=== PATIENT | male | born 1965 | race Caucasian/White ===

== ENCOUNTER 2016-03-24 16:47 | Emergency (ER) | payer SELFPAY ==
--- NOTE | 2016-03-24 17:01 | Emergency Department Record ---
History of Present Illness - General Chief complaint: Extremity Problem Stated complaint: R SHOULDER INJURY Time Seen by Provider: 03/24/16 16:55 Source: Patient Mode of Arrival: Ambulatory Limitations: No limitations - History of Present Illness Initial comments: 50 yo male presents after a fall last night. The fall occurred outside on ice. No head injury. No neck pain. He has pain of the RUE. He landed by breaking his fall with an outstretched arm. No hand oar wrist pain. He has mild elbow pain. The shoulder is painful to move at this point. He was able to move it last night but is uncomfortable today. MD Complaint: Extremity pain, Joint pain Onset/Timin -: Days(s) Location: Right, Shoulder History of Same: No Radiation: Proximal Severity scale (1-10): 2 Quality: Aching Consistency: Constant Improves with: Immobilization Worsens with: Nothing - Related Data Home Medications Medication Instructions Recorded Confirmed Last Taken Aspirin [Adult Low Dose Aspirin EC] 81 mg PO DAILY 03/24/16 03/24/16 Unknown Allergies Allergy/AdvReac Type Severity Reaction Status Date / Time No Known Drug Allergies Allergy Verified 03/24/16 16:53 Travel Screening - Travel/Exposure Within Last 30 Days Have you traveled within the last 30 days?: No Review of Systems Constitutional: Denies: Chills, Fever, Malaise, Night sweats Eyes: Denies: Eye discharge, Eye pain, Photophobia ENT: Denies: Congestion, Throat pain Respiratory: Denies: Cough, Dyspnea Cardiovascular: Denies: Chest pain, Palpitations, Syncope Endocrine: Denies: Fatigue Gastrointestinal: Denies: Abdominal pain, Diarrhea, Nausea, Vomiting Genitourinary: Denies: Hematuria, Urgency Musculoskeletal: Reports: Arthralgia, Myalgia. Denies: Back pain, Joint swelling, Neck pain Skin: Denies: Bruising, Change in color, Rash Neurological: Denies: Confusion, Headache Psychiatric: Denies: Anxiety Hematological/Lymphatic: Denies: Blood Clots, Easy bleeding, Easy bruising, Swollen glands Past Medical History - SOCIAL HISTORY Smoking Status: Never smoker Alcohol Use: None Drug Use: None - RESPIRATORY Hx Respiratory Disorders: No - CARDIOVASCULAR Hx Cardio Disorders: Yes Comment:: hx afib - NEURO Hx Neuro Disorders: No - GI Hx GI Disorders: No - Hx Genitourinary Disorders: No - ENDOCRINE Hx Endocrine Disorders: No - MUSCULOSKELETAL Hx Musculoskeletal Disorders: No - PSYCH Hx Psych Problems: No - HEMATOLOGY/ONCOLOGY Hx Hematology/Oncology Disorders: No Family Medical History Any Significant Family History?: No Physical Exam - General General Appearance: Alert, Oriented x3, Cooperative, No acute distress Limitations: No limitations - Head Head exam: Atraumatic, Normocephalic, Normal inspection - Eye Eye exam: Normal appearance. negative: Conjunctival injection - ENT ENT exam: Normal exam Ear exam: Normal external inspection Nasal Exam: Normal inspection Mouth exam: Normal external inspection Teeth exam: Normal inspection - Neck Neck exam: Normal inspection, Full ROM. negative: Tenderness - Cardiovascular Cardiovascular Exam: Regular rate, Normal rhythm, Normal heart sounds Peripheral Pulses: 2+: Radial (R) - Rectal Rectal exam: Deferred - exam: Deferred - Extremities Extremities exam: Normal inspection, Full ROM, Normal capillary refill, Tenderness. negative: Joint swelling Image of Full Body: 1 - tender anterior lateral shoulder, pain with extension and flexion, mild with internal and external rotation. clavicle non tender. Non tender AC. 2 - mild tenderness lateral epicondyle - Back Back exam: Reports: Full ROM - Neurological Neurological exam: Alert, Normal gait, Oriented X3, Reflexes normal - Psychiatric Psychiatric exam: Normal affect, Normal mood. negative: Agitated, Anxious - Skin Skin exam: Dry, Intact, Normal color, Warm. negative: Abrasion, Erythema Course Vital Signs 03/24/16 16:49 Temperature 98.1 F Pulse Rate 78 Respiratory 16 Rate Blood Pressure 139/93 Pulse Ox 98 - Reevaluation(s) Reevaluation #1: The patient was seen and examined XR ordered 03/24/16 17:06 Reevaluation #2: XR's of the shoulder and elbow are negative 03/24/16 17:53 Disposition Disposition: Discharge Clinical Impression: Right shoulder strain Qualifiers: Encounter type: initial encounter Qualified Code(s): S46.911A - Strain of unspecified muscle, fascia and tendon at shoulder and upper arm level, right arm , initial encounter Disposition: Home, Self-Care Condition: (1) Good Instructions: Rotator Cuff Injury (ED) Additional Instructions: Avoid wire spiral binder greater than 5 pounds until pain resolves. Follow up with your family doctor. If the pain persists you may need an MRI or referral for an orthopedic evaluation Ice to any sore are 3 times daily Motrin for mild discomfort. Forms: Patient Portal Access Time of Disposition: 17:53
--- NOTE | 2016-03-27 12:33 | RADIOLOGY REPORT ---
EXAM: RIGHT ELBOW HISTORY: INJURY. TECHNIQUE: Three views of the right elbow were obtained. Comparison: None. Encounter: Initial. FINDINGS: Negative for fracture or dislocation. The soft tissues are unremarkable. IMPRESSION: NEGATIVE RIGHT ELBOW EXAMINATION. JOB NUMBER: [id number] MTDD
--- NOTE | 2016-03-27 12:34 | RADIOLOGY REPORT ---
EXAM: RIGHT SHOULDER HISTORY: INJURY. TECHNIQUE: Three views of the right shoulder were obtained. Comparison: None. Encounter: Initial. FINDINGS: Negative for an acute fracture or dislocation. The soft tissues are unremarkable. The joint spaces are preserved. IMPRESSION: NEGATIVE RIGHT SHOULDER EXAMINATION. JOB NUMBER: [id number] MTDD
== END 2016-03-24 18:00 | disposition home or self-care (01) ==
LOC: ER 16:47
DX: S46.911A Strain of unspecified muscle, fascia and tendon at shoulder and upper arm level, right arm, initial encounter (principal); M25.521 Pain in right elbow; W00.0XXA Fall on same level due to ice and snow, initial encounter; I48.91 Unspecified atrial fibrillation
CPT/HCPCS: 99283